=== PATIENT | male | born 1980 | race Caucasian/White ===

== ENCOUNTER → 2019-11-09 08:26 | Outpatient (CLI) | payer BC, SELFPAY ==
[2019-11-09 10:20] LABS: Absolute Lymphocyte Count 2.13 X10^3/uL (0.83-4.51); Absolute Neutrophil Count 4.6 X10^3/uL (2.0-7.7); Basophil# 0.02 X10^3/uL; Basophil% 0.3 % (0-1); Eosinophil# 0.13 X10^3/uL; Eosinophils% 1.7 % (0-5); Hematocrit 50.9 % (40-54); Hemoglobin 16.7 g/dL (13.0-16.5); Lymphocyte # 2.13 X10^3/ul (4.0); Lymphocyte % 28.2 % (19-41); Mean Corp Hgb Conc 32.8 g/dL (32-36); Mean Corpuscular Hgb 28.8 pg (27.0-32.0); Mean Corpuscular Volume 87.9 fL (80-94); Mean Platelet Vol. 10.1 fl (6.2-12.0); Monocyte# 0.59 X10^3/uL; Monocyte% 7.8 % (0-10); NRBC Flagged by Analyzer 0 % (0-5); Neutrophil # 4.64 X10^3/uL (2.7-7.7); Neutrophil % 61.6 % (47-70); Platelet Count 285 K/mm3 (150-450); RBC Distribution Width CV 12.7 % (11.6-14.6); Red Blood Count 5.79 M/mm3 (4.6-6.2); White Blood Count 7.5 K/mm3 (4.4-11.0)
[2019-11-09 10:42] LABS: Anion Gap 6 (5-15); BUN 20 mg/dL (7-18); BUN/Creat Ratio 20.1 RATIO (10-20); Calcium,Total 9.4 mg/dL (8.5-10.1); Chloride 109 mmol/L (98-107); Cholesterol 190 mg/dL (200); EST Glomerular Filtration Rate 89 mL/min (>60); Est Glom Filt Rate - Afr Amer 107 mL/min (>60); Glucose 98 mg/dL (74-106); High Density Lipoprotein 51 mg/dL; Potassium 4.4 mmol/L (3.5-5.1); Sodium Level 140 mmol/L (136-145); Triglycerides 66 mg/dL; Very Low Density Lipoprotein 13 mg/dL (5-40)
== END ==
PROVIDERS: PCP Family Medicine; Referring Provider Family Medicine; Visit Provider Family Medicine
DX: Z01.818 Encounter for other preprocedural examination (principal)
CPT/HCPCS: 36415; 80048; 80061; 85025